=== PATIENT | female | born 1945 | race African-American/Black ===

== ENCOUNTER 2021-02-22 17:10 | Emergency (ER) | payer MEDICARE, MEDICAID ==
[~2021-02-22] VITALS: Ht 165.1 cm; Wt 83.0 kg
[2021-02-22] MEDS ORDERED: ATOR10TA69 PO (17:23)
[2021-02-22] MEDS ORDERED: POTA8TAB4 PO (17:23)
[2021-02-22] MEDS ORDERED: METF500S7 PO (17:23)
[2021-02-22] MEDS ORDERED: PANT40TA51 PO (17:23)
[2021-02-22] MEDS ORDERED: LOSA100T32 PO (17:23)
[2021-02-22] MEDS ORDERED: NEBI10TA2 PO (17:23)
[2021-02-22] MEDS ORDERED: FURO40TA5 PO (17:23)
[2021-02-22] MEDS ORDERED: GLIP10TA10 PO (17:23)
[2021-02-22] MEDS ORDERED: EMPA25TA PO (17:23)
[2021-02-22] MEDS ORDERED: ACETAMINOPHEN WITH CODEINE 300/30MG TABLET PO ONE (17:30)
[2021-02-22] MEDS ORDERED: KETOROLAC 30MG/ML VIAL IM ONE (17:30)
[2021-02-22] MEDS ORDERED: TOPUD PO (20:57)
[2021-02-22] MEDS ORDERED: IBUP-2028 MT (20:58)
[2021-02-22 21:41] VITALS: BP 135/75
== END 2021-02-22 21:43 | disposition home or self-care (01) ==
LOC: ER 17:29
DX: M25.562 Pain in left knee (principal); M19.90 Unspecified osteoarthritis, unspecified site; I10 Essential (primary) hypertension; E78.00 Pure hypercholesterolemia, unspecified; E11.9 Type 2 diabetes mellitus without complications; M79.7 Fibromyalgia; Z79.84 Long term (current) use of oral hypoglycemic drugs
CPT/HCPCS: 73560; 93971; 96372; 99284; J1885